=== PATIENT | female | born 1980 | race Caucasian/White ===

== ENCOUNTER → 2016-05-18 | Outpatient (CLI) | payer BC ==
[~2016-05-18] MED LIST: ADIPEX-P37.5 MG PO; ALBUTEROL IH; CONTRAVE1 TER PO; EPI EZ PEN1 MG/ML IM; RT ADVAIR 128 DISKUS IH; SINGULAIR 110 MG/TAB PO
[2016-05-18 09:07] LABS: BASO % 0.6 % (0.0-2.0); EOS # 0.4 (0.0-0.7); EOS % 5.4 % (0-4.0); GRAN # 3.4 (1.4-6.5); GRAN % 52.4 % (42.2-75.2); HEMATOCRIT 41.2 % (37.0-47.0); LYMPH # 2.3 (1.2-3.4); LYMPH % 34.8 % (20.0-51.0); MEAN CORPUSCULAR HEMOGLOBIN 22 pg (27.0-31.0); MEAN CORPUSCULAR HGB CONC 29 g/dl (33.0-37.0); MEAN PLATELET VOLUME 10.6 fl (7.4-10.4); MONO # 0.4 (0.1-0.6); MONO % 6.5 % (1.7-9.3); PLATELET COUNT 246 K/mm3 (130-400); RED BLOOD COUNT 5.55 M/mm3 (4.10-5.30); WHITE BLOOD COUNT 6.5 K/mm3 (4.8-10.8)
[2016-05-18 09:28] LABS: ADJUSTED CALCIUM 9.2 mg/dL (8.4-10.2); ALBUMIN 3.9 gm/dL (3.5-5.0); BILIRUBIN,TOTAL 0.7 mg/dL (0.0-1.0); CALCIUM 9.1 mg/dL (8.4-10.2); CREATININE, serum 0.76 mg/dL (0.52-1.25); POTASSIUM 3.9 mmol/L (3.4-5.0); TOTAL PROTEIN 7.6 gm/dL (6.4-8.2)
[2016-05-18 09:39] LABS: MEAN CELL VOLUME 74 fl (80.0-100.0)
[2016-05-18 09:58] LABS: THYROID STIMULATING HORMONE 2.69 uIU/mL (0.465-4.680)
== END ==
LOC: COL.LAB 08:39
PROVIDERS: Family Medicine
DX: E66.8 Other obesity (principal)

== ENCOUNTER → 2016-06-15 | Outpatient (CLI) | payer BC ==
[~2016-06-15] VITALS: Ht 156.2 cm; Wt 85.7 kg
[2016-06-15 13:45] VITALS: BP 124/72; PULSE 83
== END ==
LOC: LIGHT
DX: J45.998 Other asthma (principal); E66.01 Morbid (severe) obesity due to excess calories; Z68.35 Body mass index [BMI] 35.0-35.9, adult